=== PATIENT | female | born 1945 | race Caucasian/White ===

== ENCOUNTER → 2016-10-06 | Outpatient (CLI) | payer MEDICARE, OTHER ==
[~2016-10-06] MED LIST: CALTRATE 600 WI1 TAB PO; COUMADIN5 MG PO; CYMBALTA60 MG PO; FEMARA2.5 MG PO; GLUCOPHAGE500 MG PO; KLOR-CON M1010 MEQ PO; LASIX40 MG PO; LIPITOR80 MG PO; TOPROL XL100 MG PO; TOUJEO SOL300 UNIT/1 SUBCUT; VITAMIN D3400 UNI1 PO
== END | disposition short-term general hospital (02) ==
LOC: CLONCO 09-22 11:27
DX: C50.112 Malignant neoplasm of central portion of left female breast (principal); R32 Unspecified urinary incontinence; Z17.0 Estrogen receptor positive status [ER+]; Z98.890 Other specified postprocedural states